=== PATIENT | male | born 1935 | race Caucasian/White ===

== ENCOUNTER → 2018-12-23 | Outpatient (CLI) | payer MEDICARE ==
--- NOTE | 2018-12-23 14:53 | 2DMMODE ---
[place] [address] 2 D/M-MODE ECHOCARDIOGRAM Name: EDILMA,EDJUDAH Room: [facility]#: [id number] Admission: 12/23/18 Attend Phys: Tomas Mcdaniels, Discharge: Date of : 39 Date of Service: 12/23/18 1452 Report #: [id number] THIS REPORT FOR: //name// APPROVED REPORT Study performed: 12/23/2018 13:59:36 EXAM: Comprehensive 2D, Doppler, and color-flow Echocardiogram Patient Location: Out-Patient BSA: 2.01 HR: 86 bpm BP: 140/90 mmHg Other Information Study Quality: Good Indications Murmur 2D Dimensions IVSd: 10.40 (7-11mm) LVOT Diam: 20.67 (18-24mm) LVDd: 45.18 mm PWd: 9.76 (7-11mm) Ascending Ao: 33.55 (22-36mm) LVDs: 26.82 (25-40mm) Aortic Root: 29.51 mm Volumes Left Atrial Volume (Systole) LA ESV Index: 20.50 mL/m2 Aortic Valve AoV Peak Roddy.: 3.01 m/s AO Peak Gr.: 36.16 mmHg LVOT Max P.29 mmHg AO Mean Gr.: 20.70 mmHg LVOT Mean P.29 mmHg LVOT Max V: 1.25 m/s AO V2 VTI: 62.95 cm LVOT Mean V: 0.84 m/s DIONTE (VTI): 1.52 cm2 LVOT V1 VTI: 28.47 cm Mitral Valve E/A Ratio: 0.60 MV Decel. Time: 269.35 ms MV E Max Roddy.: 0.81 m/s MV PHT: 78.11 ms MVA (PHT): 2.82 cm2 [place] [address] 2 D/M-MODE ECHOCARDIOGRAM Name: EDILMA,EDJUDAH Room: [facility]#: [id number] Admission: 12/23/18 Attend Phys: Tomas Mcdaniels, Discharge: Date of : 39 Date of Service: 12/23/18 1452 Report #: [id number] TDI E/Lateral E': 8.10 E/Medial E': 13.50 Medial E' Roddy.: 0.06 m/s Lateral E' Roddy.: 0.10 m/s Pulmonary Valve PV Peak Roddy.: 1.27 m/s PV Peak Gr.: 6.49 mmHg Tricuspid Valve RAP Estimate: 5.00 mmHg TR Peak Gr.: 17.37 mmHg RVSP: 22.37 mmHg PA Pressure: 22.37 mmHg Left Ventricle The left ventricle is normal size. There is normal LV segmental wall motion. There is normal left ventricular wall thickness. Left ventricular systolic function is normal. The left ventricular ejection fraction is within the normal range. LVEF is 60-65%. Grade I - abnormal relaxation pattern. Right Ventricle The right ventricle is normal size. The right ventricular systolic function is normal. Atria The left atrium size is normal. The right atrium size is normal. Aortic Valve Aortic valve is moderately calcified. No aortic regurgitation is present. Moderate aortic stenosis. Mitral Valve Moderate mitral annular calcification. Mild mitral regurgitation. No evidence of mitral valve stenosis. Tricuspid Valve The tricuspid valve is normal in structure. Mild tricuspid regurgitation. estimated pa pressure 25 mm hg Pulmonic Valve The pulmonary valve is normal in structure. Mild pulmonic regurgitation[place] [address] 2 D/M-MODE ECHOCARDIOGRAM Name: KEVIN FRANCE Room: [facility] Gordon#: [id number] Admission: 12/23/18 Attend Phys: Tomas Mcdaniels, Discharge: Date of : 39 Date of Service: 12/23/18 1452 Report #: [id number] The aortic root is normal in size. IVC is normal in size and collapses >50% with inspiration. Pericardium There is no pericardial effusion. <Conclusion> LVEF is 60-65%. Moderate aortic stenosis. Mild mitral regurgitation. <ELECTRONICALLY SIGNED> By: Donnell Magallon MD, FACC 12/23/181451 51 51 Donnell Magallon MD, FAC /INF
== END ==
LOC: M.CRD 13:56
DX: I08.8 Other rheumatic multiple valve diseases (principal)

== ENCOUNTER 2020-05-31 15:03 | Emergency (ER) | payer MEDICARE ==
[~2020-05-31] VITALS: Ht 172.7 cm; Wt 83.5 kg
[2020-05-31] MEDS ORDERED: LATANOPROST 0.2.5 ML OPHTHALMIC (15:11)
[2020-05-31 15:33] LABS: ABSOLUTE BASOPHILS 0.1 thou/uL (0.0-0.2); ABSOLUTE EOSINOPHILS 0.3 thou/uL (0.0-0.7); ABSOLUTE MONOCYTES 0.6 thou/uL (0.0-1.2); ABSOLUTE NEUTROPHILS 5.6 thou/uL (1.6-8.1); BASOPHILS 0.9 %; EOSINOPHILS 3.6 %; HEMOGLOBIN 14.2 gm/dL (14.0-18.0); LYMPHOCYTES 13.4 %; MCH 33.4 pg (26.0-34.0); MCHC 34.6 g/dL (28.0-37.0); MCV 96.6 fL (80.0-100.0); MONOCYTES 7.5 %; MPV 8.5 fl. (7.2-11.1); NUCLEATED RBCS 0 /100WBC; PLATELET COUNT* 185 thou/uL (150-400); POLYS 74.6 %; RBC 4.25 mil/uL (4.50-6.00); RDW-CV 12.9 % (10.5-14.5); WBC 7.5 thou/uL (4.0-11.0)
[2020-05-31 15:42] LABS: CALCIUM 8.6 mg/dL (8.5-10.1); CREATININE 1.2 mg/dL (0.6-1.3)
[2020-05-31 15:45] LABS: APTT 21.5 Seconds (25.0-31.3); PROTIME 10.3 Seconds (9.20-11.50)
--- NOTE | 2020-05-31 15:45 | EKG ---
[place] [address] ELECTROCARDIOGRAM REPORT Name: EDILMA,KEVIN Shanna Room: [facility]#: [id number] Admission: 05/31/20 Attend Phys: Discharge: Date of : 39 Date of Service: 05/31/20 1508 Report #: [id number] THIS REPORT FOR: //name// [facility] ED Test Date: 2020-05-31 Test Time: 15:08:39 Pat Name: KEVIN FRANCE Department: Room: Gender: Senior Financial: [facility] : 1935 Requested By: Jules Johnson Order Number: [id number] MD: Nathan Jung Measurements Intervals [place] Rate: 99 P: [place]: QRS: -20 QRSD: 115 T: 59 QT: 369 QTc: 474 Interpretive Statements Atrial fibrillation Ventricular premature complex Baseline wander in lead(s) II,III,aVF No previous ECG available for comparison Electronically Signed On 05-31-2020 15:44:55 CDT by Nathan Jung [email or web address] <ELECTRONICALLY SIGNED> By: Nathan Jung MD, [facility] 05/31/20 1544 1508 1508 Nathan Jung MD, [facility] /EPI
[2020-05-31 15:46] LABS: ALBUMIN 3.2 g/dL (3.4-5.0); TOTAL BILIRUBIN 0.6 mg/dL (<0.1-1.0); TOTAL PROTEIN 7.1 g/dL (6.4-8.2)
[2020-05-31 16:14] VITALS: BP 148/94
== END 2020-05-31 16:15 | disposition home or self-care (01) ==
LOC: M.ERS 15:03
PROVIDERS: Family Medicine
DX: S01.112A Laceration without foreign body of left eyelid and periocular area, initial encounter (principal); R55 Syncope and collapse; W18.39XA Other fall on same level, initial encounter; Y93.89 Activity, other specified; Y92.89 Other specified places as the place of occurrence of the external cause; Y99.8 Other external cause status

== ENCOUNTER 2020-06-05 22:59 | Inpatient (IN) | payer MEDICARE ==
[~2020-06-05] VITALS: Ht 172.7 cm; Wt 86.2 kg
[~2020-06-05 22:59] MED LIST: LATANOPROST 0.2.5 ML OPHTHALMIC
[2020-06-05 23:16] VITALS: BP 119/85
[2020-06-05 23:41] LABS: ABSOLUTE BASOPHILS 0.1 thou/uL (0.0-0.2); ABSOLUTE EOSINOPHILS 0.1 thou/uL (0.0-0.7); ABSOLUTE LYMPHOCYTES 1.4 thou/uL (0.8-5.3); ABSOLUTE MONOCYTES 1.1 thou/uL (0.0-1.2); ABSOLUTE NEUTROPHILS 8.7 thou/uL (1.6-8.1); BASOPHILS 0.5 %; EOSINOPHILS 0.9 %; HEMATOCRIT 45.3 % (42.0-52.0); HEMOGLOBIN 15.2 gm/dL (14.0-18.0); LYMPHOCYTES 11.9 %; MCH 32.8 pg (26.0-34.0); MCHC 33.6 g/dL (28.0-37.0); MCV 97.6 fL (80.0-100.0); MPV 8.5 fl. (7.2-11.1); NUCLEATED RBCS 0 /100WBC; PLATELET COUNT* 237 thou/uL (150-400); POLYS 76.7 %; RBC 4.64 mil/uL (4.50-6.00); WBC 11.4 thou/uL (4.0-11.0)
[2020-06-05 23:48] LABS: CALCIUM 9.4 mg/dL (8.5-10.1); CREATININE 1.3 mg/dL (0.6-1.3); POTASSIUM 3.9 mmol/L (3.5-5.1)
[2020-06-05 23:57] LABS: ALBUMIN 3.1 g/dL (3.4-5.0); MAGNESIUM 2.1 mg/dL (1.8-2.4); TOTAL BILIRUBIN 0.8 mg/dL (<0.1-1.0); TOTAL PROTEIN 7.5 g/dL (6.4-8.2)
[2020-06-06 01:27] LABS: URINE BILIRUBIN NEGATIVE (Negative); URINE BLOOD NEGATIVE (Negative); URINE CLARITY CLEAR; URINE COLOR YELLOW; URINE GLUCOSE-RANDOM NEGATIVE (Negative); URINE KETONES NEGATIVE (Negative); URINE LEUKOCYTES-REFLEX NEGATIVE (Negative); URINE NITRITE-REFLEX NEGATIVE (Negative); URINE PROTEIN NEGATIVE (Negative); URINE SPECIFIC GRAVITY <= 1.005 (1.005-1.030)
[2020-06-06 05:34] LABS: HEMATOCRIT 44.2 % (42.0-52.0); HEMOGLOBIN 14.8 gm/dL (14.0-18.0); MCH 32.7 pg (26.0-34.0); MCHC 33.6 g/dL (28.0-37.0); MCV 97.3 fL (80.0-100.0); MPV 8.5 fl. (7.2-11.1); NUCLEATED RBCS 0 /100WBC; PLATELET COUNT* 229 thou/uL (150-400); RBC 4.54 mil/uL (4.50-6.00)
[2020-06-06 05:36] LABS: CALCIUM 8.6 mg/dL (8.5-10.1); CREATININE 1.2 mg/dL (0.6-1.3); TOTAL BILIRUBIN 1.6 mg/dL (<0.1-1.0); TOTAL PROTEIN 7.3 g/dL (6.4-8.2)
[2020-06-06 05:45] VITALS: BP 108/73
[2020-06-06 06:16] LABS: ABSOLUTE LYMPHOCYTES 0.9 thou/uL (0.8-5.3); ABSOLUTE MONOCYTES 0.7 thou/uL (0.0-1.2); ABSOLUTE NEUTROPHILS 15.5 thou/uL (1.6-8.1); PLATELET ESTIMATE ADEQUATE
[2020-06-06 08:00] VITALS: BP 121/55
[2020-06-06 10:45] VITALS: BP 126/69
--- NOTE | 2020-06-06 11:20 | EKG ---
[place] [address] ELECTROCARDIOGRAM REPORT Name: KEVIN FRANCE Room: [address] ADM IN [facility].#: [id number] Admission: 06/06/20 Attend Phys: Gabriel Dominguez, Discharge: Date of : 39 Date of Service: 06/06/20 0400 Report #: [id number] THIS REPORT FOR: //name// [facility] ED Test Date: 2020-06-06 Test Time: 04:00:52 Pat Name: KEVIN FRANCE Department: Room: [facility] Gender: M Band Presser: MILADYS : 1935 Requested By: Patricia Jung Order Number: [id number] MD: Donnell Magallon Measurements Intervals [place] Rate: 113 P: -84 PA: 168 QRS: -55 QRSD: 126 T: 58 QT: 404 QTc: 554 Interpretive Statements atrial flutter Nonspecific IVCD with LAD Artifact in lead(s) II,III,aVF Compared to ECG 06/05/2020 23:28:09 Atrial fibrillation no longer present ST (T wave) deviation still present Electronically Signed On 06-06-2020 11:20:33 CDT by Donnell Magallon [email or web address] <ELECTRONICALLY SIGNED> By: Donnell Magallon MD, [facility] 06/06/20 1120 9 9 Donnell Magallon MD, [facility] /EPI
--- NOTE | 2020-06-06 11:22 | EKG ---
[place] [address] ELECTROCARDIOGRAM REPORT Name: KEVIN FRANCE Room: [address] ADM IN .R.#: [id number] Admission: 06/06/20 Attend Phys: Gabriel Dominguez, Discharge: Date of : 39 Date of Service: 06/06/20 0402 Report #: [id number] THIS REPORT FOR: //name// [facility] ED Test Date: 2020-06-06 Test Time: 04:02:51 Pat Name: KEVIN FRANCE Department: Room: [address] Gender: M Box Truck Washer: MILADYS PERRYB: 1935 Requested By: Patricia Jung Order Number: [id number] Adelso MD: Donnell Magallon Measurements Intervals [place] Rate: 83 P: [place]: QRS: -64 QRSD: 111 T: 237 QT: 462 QTc: 543 Interpretive Statements Atrial flutter with varied AV block left axis Anterior ST elevation, probably due early repolarization Prolonged QT interval Compared to ECG 06/06/2020 04:00:52 Prolonged QT interval now present ST (T wave) deviation still present Electronically Signed On 06-06-2020 11:22:30 CDT by Donnell Magallon [email or web address] <ELECTRONICALLY SIGNED> By: Donnell Magallon MD, [facility] 06/06/20 112 1 1 Donnell Magallon MD, [facility] /EPI
[2020-06-06 12:00] VITALS: BP 122/63
[2020-06-06 14:07] VITALS: BP 121/55
--- NOTE | 2020-06-06 17:14 | EKG ---
[place] [address] ELECTROCARDIOGRAM REPORT Name: KEVIN FRANCE Room: [address] ADM IN ..#: [id number] Admission: 06/06/20 Attend Phys: Gabriel Dominguez, Discharge: Date of : 39 Date of Service: 06/05/20 2328 Report #: [id number] THIS REPORT FOR: //name// [facility] ED Test Date: 2020-06-05 Test Time: 23:28:09 Pat Name: KEVIN FRANCE Department: Room: [address] Gender: M Service Secretary: FARHANA : 1935 Requested By: Patricia Jung Order Number: [id number] Reading MD: Donnell Magallon Measurements Intervals [place] Rate: 95 P: [place]: QRS: -15 QRSD: 90 T: 49 QT: 359 QTc: 452 Interpretive Statements Atrial fibrillation Consider left ventricular hypertrophy ST elevation, consider early repolarization Baseline wander in lead(s) V1 Compared to ECG 05/31/2020 15:08:39 Ventricular premature complex(es) no longer present Electronically Signed On 06-06-2020 17:14:31 CDT by Donnell Magallon [email or web address] <ELECTRONICALLY SIGNED> By: Donnell Magallon MD, FACC 06/06/20 1714 2328 2328 Donnell Magallon MD, [facility] /EPI
[2020-06-07] VITALS: BP 134/67
[2020-06-07 04:56] VITALS: BP 124/71
[2020-06-07 05:21] LABS: ALBUMIN 2.6 g/dL (3.4-5.0); CALCIUM 8.3 mg/dL (8.5-10.1); CREATININE 1.6 mg/dL (0.6-1.3); MAGNESIUM 2.2 mg/dL (1.8-2.4); PHOSPHORUS* 2.8 mg/dL (2.5-4.9); POTASSIUM 4.7 mmol/L (3.5-5.1); TOTAL BILIRUBIN 1.7 mg/dL (<0.1-1.0); TOTAL PROTEIN 6.9 g/dL (6.4-8.2)
[2020-06-07 05:22] LABS: ABSOLUTE LYMPHOCYTES 0.5 thou/uL (0.8-5.3); ABSOLUTE MONOCYTES 0.6 thou/uL (0.0-1.2); ABSOLUTE NEUTROPHILS 12.9 thou/uL (1.6-8.1); BASOPHILS 0.1 %; HEMATOCRIT 39.5 % (42.0-52.0); LYMPHOCYTES 3.3 %; MCH 32.1 pg (26.0-34.0); MCV 97.4 fL (80.0-100.0); MONOCYTES 4.3 %; MPV 8.9 fl. (7.2-11.1); NUCLEATED RBCS 0 /100WBC; PLATELET COUNT* 207 thou/uL (150-400); POLYS 92.3 %; RBC 4.06 mil/uL (4.50-6.00); RDW-CV 12.9 % (10.5-14.5); WBC 13.9 thou/uL (4.0-11.0)
[2020-06-07 05:27] LABS: APTT 26.3 Seconds (25.0-31.3); INR 1.1; PROTIME 11.9 Seconds (9.20-11.50)
[2020-06-07 05:32] LABS: CALCIUM 8.5 mg/dL (8.5-10.1); CREATININE 1.6 mg/dL (0.6-1.3); POTASSIUM 4.7 mmol/L (3.5-5.1)
[2020-06-07 08:00] VITALS: BP 156/88
[2020-06-07 12:00] VITALS: BP 151/79
[2020-06-07 16:00] VITALS: BP 131/65
[2020-06-07 20:00] VITALS: BP 134/71
[2020-06-08] VITALS: BP 123/56
[2020-06-08 06:19] LABS: HEMATOCRIT 35.4 % (42.0-52.0); HEMOGLOBIN 11.9 gm/dL (14.0-18.0); MCH 32.9 pg (26.0-34.0); MCHC 33.6 g/dL (28.0-37.0); MCV 97.8 fL (80.0-100.0); MPV 9.2 fl. (7.2-11.1); RBC 3.62 mil/uL (4.50-6.00); RDW-CV 12.9 % (10.5-14.5); WBC 13.5 thou/uL (4.0-11.0)
[2020-06-08 06:23] LABS: CALCIUM 8.6 mg/dL (8.5-10.1); CREATININE 1.4 mg/dL (0.6-1.3); POTASSIUM 3.8 mmol/L (3.5-5.1)
[2020-06-08 08:00] VITALS: BP 157/81
--- NOTE | 2020-06-08 08:56 | EKG ---
[place] [address] ELECTROCARDIOGRAM REPORT Name: KEVIN FRANCE Room: [address] ADM IN .R.#: [id number] Admission: 06/06/20 Attend Phys: Gabriel Dominguez, Discharge: Date of : 39 Date of Service: 06/08/20 0559 Report #: [id number] THIS REPORT FOR: //name// [facility] Test Date: 2020-06-08 Test Time: 05:59:32 Pat Name: KEVIN FRANCE Department: Room: [address] Gender: M Material Attendant: LASHAE : 1935 Requested By: Giuliana Rapp Order Number: [id number] Reading MD: Donnell Magallon Measurements Intervals [place] Rate: 69 P: 39 [place]: 191 QRS: -23 QRSD: 106 T: 29 QT: 433 QTc: 464 Interpretive Statements Sinus rhythm Left atrial enlargement Borderline left axis deviation Borderline ST elevation, anterior leads Compared to ECG 06/06/2020 04:02:51 atrial flutter no longer seen ST (T wave) deviation still present Electronically Signed On 06-08-2020 8:56:17 CDT by Donnell Magallon [email or web address] <ELECTRONICALLY SIGNED> By: Donnell Magallon MD, FACC 06/08/20 0856 0559 0559 Donnell Magallon MD, [facility] /EPI
[2020-06-08] MEDS ORDERED: PACERONE 200 M200 M1 PO (10:18)
[2020-06-08] MEDS ORDERED: XARELTO20 MG PO (10:18)
[2020-06-08 12:01] VITALS: BP 105/58
[2020-06-08] MEDS ORDERED: FLOMAX0.4 MG PO (15:36)
[2020-06-08] MEDS ORDERED: AUGMENTIN 875-1 EACH PO (15:49)
[2020-06-08 15:57] VITALS: BP 105/58
--- NOTE | 2020-06-10 15:21 | OP ---
[address] [address] OPERATIVE REPORT Name: KEVIN FRANCE Room: [address] IN .R.#: [id number] Admission: 06/06/20 Attend Phys: Gabriel Dominguez MD Discharge: 06/08/20 Date of : 39 Report #: [id number] THIS REPORT FOR: cc: Tomas Mcdaniels John E. DO Kramer, Adam P. DO ~ DICTATED BY: Margie Robles DO DATE OF SERVICE: 06/06/2020 PREOPERATIVE DIAGNOSIS: Acute appendicitis. POSTOPERATIVE DIAGNOSIS: Acute perforated appendicitis. PRIMARY SURGEON: Ludwig Alaniz DO RETURNED TELEPHONE EQUIPMENT APPRAISER: Margie Robles DO, PGY3. SECOND BEVEL MILL OPERATOR: Abel Pereyra MS3. PROCEDURE PERFORMED: Laparoscopic appendectomy. ANESTHESIA: General and local. ESTIMATED BLOOD LOSS: 20 mL. SPECIMEN: Appendix. INDICATIONS FOR PROCEDURE: The patient is an 84-year-old gentleman who presented to the Emergency Department with complaint of abdominal pain that had localized to the right lower quadrant. He had some loose stools accompanied with the pain. Of note, he is also under the care of Dr. Jung, his door tender, and had been wearing a cardiac rehabilitation program director after a syncopal episode on 05/31. He was found to have severe aortic stenosis and is under consideration for a TAVR. He was admitted to the hospital with plans for cardiac clearance and then plans for laparoscopic appendectomy. The procedure, risks, benefits, possible complications to include bleeding, infection, injury to surrounding structures, need for additional surgery, risk of anesthesia, and other risks of surgery were all discussed with the patient in great detail. He voiced complete understanding and wished to proceed with surgery. DESCRIPTION OF PROCEDURE: Informed consent was obtained. The patient was taken to the operating room and placed supine on the operating room table. General endotracheal anesthesia was induced without difficulty. SCDs were placed on bilateral lower extremities. [place] [address] OPERATIVE REPORT Name: EDILMAKEVIN Room: [address] IN [facility].#: [id number] Admission: 06/06/20 Attend Phys: Gabriel Dominguez MD Discharge: 06/08/20 Date of : 39 Report #: [id number] catheter was placed. The left arm was tucked at his side with all pressure points padded. The abdomen was prepped and draped in a standard sterile fashion. A timeout was performed to ensure correct patient and procedure. A vertical supraumbilical incision was made using a #11 blade scalpel. The incision was carried down through subcutaneous tissue using electrocautery. Army-Navys were used to help dissect further down to the level of the fascia. Fascia was scored with electrocautery and grasped between 2 Kochers. Fascia was elevated. Peritoneum was entered bluntly using hemostat. The 0 Vicryl stay sutures were placed on either side of the fascial opening in a [id number] fashion. A 5-mm Ynes trocar was inserted through the fascial opening. Abdomen was insufflated, laparoscopic camera was inserted and a sweep of the anterior abdominal contents was performed. There appeared to be quite a bit of inflammation in the right lower quadrant as well as some purulent fluid. The patient was placed in the Trendelenburg position. A suprapubic 5-mm trocar was inserted under direct visualization. The right lower quadrant was explored. The appendix was seen coursing into the pelvis. A 12-mm left lower quadrant trocar was inserted under direct visualization. The mesoappendix was grasped and the appendix was bluntly dissected away from the lateral abdominal wall and elevated. The mesoappendix was taken down using the Harmonic scalpel until we reached the base of the appendix. The base of the appendix did appear to be healthy. There was an obvious perforation along the mid portion of the appendix with purulent discharge. A 45-mm purple load on the Endo-MICHELLE stapler was used to come across the base of the appendix. The appendix was placed within an EndoCatch bag. The suction bait painter was used to irrigate the right lower quadrant and the pelvis. A 15-Portuguese SHAHID drain was placed through the suprapubic trocar into the right lower quadrant and pelvis. The 5-mm trocar was removed. The abdomen was reinspected, everything appeared to be hemostatic. Our staple line was reinspected, it appeared to be hemostatic. The left lower quadrant 12-mm trocar was removed under direct visualization and the abdomen was desufflated without difficulty. The appendix within the EndoCatch bag was removed. We did have to remove our superior stay suture and open up the fascia using heavy curved Ascencio scissors. The fascia was then grasped between 2 Kochers and elevated. Fascia was closed using a 0 Vicryl suture in a [id number]-gbkxc fashion. The drain was sutured in place using a 2-0 nylon suture. The skin at the supraumbilical incision was closed using 4-0 Monocryl suture in a running subcuticular fashion. The skin at the left lower quadrant trocar site was closed using 4-0 Monocryl suture in a simple interrupted and inverted fashion. Skin was cleansed and dried. Approximately 30 mL of 0.5% Marcaine were used for local anesthesia. Dermabond was applied to each incision. The patient tolerated the procedure very well. He was allowed to awaken in the operating [facility] [address] [place] [address] OPERATIVE REPORT Name: KEVIN FRANCE Room: [address] IN [facility].#: [id number] Admission: 06/06/20 Attend Phys: Gabriel Dominguez MD Discharge: 06/08/20 Date of : 39 Report #: [id number] room, was transferred to the PACU in stable condition with plans to return to the floor for ongoing care and continued antibiotics. <ELECTRONICALLY SIGNED> By: Ludwig Alaniz DO 06/10/20 1521 13 2059Anahum Alaniz DO /nt
== END 2020-06-08 17:30 | disposition home or self-care (01) | DRG 853 ==
LOC: M.ERS 22:59 → M.2W 06-06 05:31 → M.TBA-ER 06-06 05:31 → M.2W 06-06 05:45
PROVIDERS: Emergency Medicine; Internal Medicine; Surgery; ADMIT Internal Medicine; ATTEND Internal Medicine
PROC: 0DTJ4ZZ Resection of Appendix, Percutaneous Endoscopic Approach (ICD-10-PCS; principal; 2020-06-06)
DX: A41.9 Sepsis, unspecified organism (principal); K35.32 Acute appendicitis with perforation, localized peritonitis, and gangrene, without abscess; I48.92 Unspecified atrial flutter; N17.9 Acute kidney failure, unspecified; I35.0 Nonrheumatic aortic (valve) stenosis; Z20.822 Contact with and (suspected) exposure to COVID-19

== ENCOUNTER 2020-06-10 11:14 | Inpatient (IN) | payer MEDICARE ==
[~2020-06-10] VITALS: Ht 172.7 cm; Wt 83.5 kg
[~2020-06-10 11:14] MED LIST changes: +AUGMENTIN 875-1 EACH PO; +FLOMAX0.4 MG PO; +PACERONE 200 M200 M1 PO; +XARELTO20 MG PO
[2020-06-10 12:13] VITALS: BP 115/81
[2020-06-10 13:30] LABS: ABSOLUTE BASOPHILS 0.1 thou/uL (0.0-0.2); ABSOLUTE EOSINOPHILS 0.2 thou/uL (0.0-0.7); ABSOLUTE LYMPHOCYTES 0.8 thou/uL (0.8-5.3); ABSOLUTE MONOCYTES 1.1 thou/uL (0.0-1.2); BASOPHILS 0.9 %; EOSINOPHILS 2.3 %; HEMATOCRIT 39.3 % (42.0-52.0); HEMOGLOBIN 13.3 gm/dL (14.0-18.0); LYMPHOCYTES 8.3 %; MCH 33.3 pg (26.0-34.0); MONOCYTES 12.1 %; MPV 8.2 fl. (7.2-11.1); NUCLEATED RBCS 0 /100WBC; PLATELET COUNT* 255 thou/uL (150-400); POLYS 76.4 %; WBC 9.2 thou/uL (4.0-11.0)
[2020-06-10 13:53] LABS: CALCIUM 8.4 mg/dL (8.5-10.1); CREATININE 1.1 mg/dL (0.6-1.3)
[2020-06-10 14:02] LABS: ALBUMIN 2.4 g/dL (3.4-5.0); TOTAL BILIRUBIN 0.8 mg/dL (<0.1-1.0); TOTAL PROTEIN 6.7 g/dL (6.4-8.2)
[2020-06-10 18:03] VITALS: BP 111/65
[2020-06-10 23:04] VITALS: BP 120/66
[2020-06-11 00:38] VITALS: BP 156/76
[2020-06-11 04:35] LABS: HEMOGLOBIN 13.6 gm/dL (14.0-18.0); MCH 32.9 pg (26.0-34.0); MCHC 33.9 g/dL (28.0-37.0); MCV 97.1 fL (80.0-100.0); MPV 8.2 fl. (7.2-11.1); RBC 4.12 mil/uL (4.50-6.00); RDW-CV 12.7 % (10.5-14.5); WBC 12.2 thou/uL (4.0-11.0)
[2020-06-11 04:44] VITALS: BP 132/61
[2020-06-11 04:55] LABS: ALBUMIN 2.4 g/dL (3.4-5.0); CALCIUM 8.2 mg/dL (8.5-10.1); CREATININE 1.2 mg/dL (0.6-1.3); MAGNESIUM 2.2 mg/dL (1.8-2.4); POTASSIUM 4.1 mmol/L (3.5-5.1); TOTAL BILIRUBIN 0.8 mg/dL (<0.1-1.0); TOTAL PROTEIN 6.8 g/dL (6.4-8.2)
[2020-06-11 08:00] VITALS: BP 158/82
[2020-06-11 16:40] VITALS: BP 127/72
[2020-06-11 22:00] VITALS: BP 137/71
[2020-06-12 08:00] VITALS: BP 155/79
[2020-06-12 09:20] LABS: CALCIUM 7.9 mg/dL (8.5-10.1); CREATININE 1.2 mg/dL (0.6-1.3); MAGNESIUM 2.3 mg/dL (1.8-2.4); POTASSIUM 3.8 mmol/L (3.5-5.1)
[2020-06-12 09:21] LABS: HEMATOCRIT 35.2 % (42.0-52.0); MCH 32.7 pg (26.0-34.0); MCHC 33.1 g/dL (28.0-37.0); MCV 98.8 fL (80.0-100.0); MPV 8.7 fl. (7.2-11.1); RBC 3.56 mil/uL (4.50-6.00); RDW-CV 12.7 % (10.5-14.5); WBC 9.2 thou/uL (4.0-11.0)
[2020-06-12 10:44] LABS: HEMOGLOBIN 11.6 gm/dL (14.0-18.0)
[2020-06-12 15:29] VITALS: BP 128/77
[2020-06-13 00:42] VITALS: BP 140/69
[2020-06-13 04:59] LABS: CALCIUM 8.4 mg/dL (8.5-10.1); CREATININE 1.2 mg/dL (0.6-1.3); MAGNESIUM 2.3 mg/dL (1.8-2.4); POTASSIUM 3.7 mmol/L (3.5-5.1)
[2020-06-13 06:16] VITALS: BP 153/69
[2020-06-13 09:00] VITALS: BP 164/80
[2020-06-13 16:38] VITALS: BP 145/68
[2020-06-13 20:10] VITALS: BP 143/70
[2020-06-14] MEDS ORDERED: LACTOBACILLUS1 EACH PO (09:17)
[2020-06-14] MEDS ORDERED: CEPHALEXIN500 MG PO (09:17)
[2020-06-14 09:33] VITALS: BP 143/70
[2020-06-14 09:41] VITALS: BP 143/70
== END 2020-06-14 14:00 | disposition home or self-care (01) | DRG 299 ==
LOC: M.ERS 11:14 → M.ORTHSURG 14:37 → M.TBA-ER 14:37 → M.ORTHSURG 18:05
PROVIDERS: Internal Medicine; Physician Assistant; ADMIT Internal Medicine; ATTEND Internal Medicine
DX: I82.611 Acute embolism and thrombosis of superficial veins of right upper extremity (principal); E43 Unspecified severe protein-calorie malnutrition; L03.113 Cellulitis of right upper limb; I80.8 Phlebitis and thrombophlebitis of other sites; I35.1 Nonrheumatic aortic (valve) insufficiency; I48.91 Unspecified atrial fibrillation; D72.829 Elevated white blood cell count, unspecified; Z20.822 Contact with and (suspected) exposure to COVID-19; Z90.49 Acquired absence of other specified parts of digestive tract; Z79.01 Long term (current) use of anticoagulants; Z79.899 Other long term (current) drug therapy; Z68.28 Body mass index [BMI] 28.0-28.9, adult

== ENCOUNTER → 2020-07-05 | Outpatient (CLI) | payer MEDICARE ==
[~2020-07-05] VITALS: Ht 180.3 cm; Wt 81.6 kg
[~2020-07-05] MED LIST changes: +ALLEGRA ALLERG180 MG PO; +AMIODARONE HCL400 MG PO; +CEPHALEXIN500 MG PO; +LACTOBACILLUS1 EACH PO
[2020-07-05 09:36] VITALS: BP 152/88
[2020-07-05 09:44] LABS: ABSOLUTE BASOPHILS 0.1 thou/uL (0.0-0.2); ABSOLUTE EOSINOPHILS 0.2 thou/uL (0.0-0.7); ABSOLUTE MONOCYTES 0.7 thou/uL (0.0-1.2); ABSOLUTE NEUTROPHILS 4.6 thou/uL (1.6-8.1); EOSINOPHILS 3.1 %; HEMATOCRIT 41.5 % (42.0-52.0); HEMOGLOBIN 14.2 gm/dL (14.0-18.0); LYMPHOCYTES 15.8 %; MCH 33.5 pg (26.0-34.0); MCHC 34.2 g/dL (28.0-37.0); MCV 97.9 fL (80.0-100.0); MONOCYTES 10.3 %; MPV 8.5 fl. (7.2-11.1); NUCLEATED RBCS 0 /100WBC; PLATELET COUNT* 175 thou/uL (150-400); POLYS 69.8 %; RBC 4.24 mil/uL (4.50-6.00); WBC 6.6 thou/uL (4.0-11.0)
[2020-07-05 09:53] LABS: ANION GAP 11 mmol/L (7-16); BUN 22 mg/dL (7-18); CALCIUM 8.8 mg/dL (8.5-10.1); CHLORIDE 105 mmol/L (98-107); CO2 26 mmol/L (21-32); CREATININE 1.3 mg/dL (0.6-1.3); GLUCOSE 98 mg/dL (70-99); POTASSIUM 3.8 mmol/L (3.5-5.1); SODIUM 142 mmol/L (136-145)
[2020-07-05 09:56] LABS: APTT 23.4 Seconds (25.0-31.3); PROTIME 9.8 Seconds (9.20-11.50)
[2020-07-05 09:58] LABS: ALBUMIN 3.5 g/dL (3.4-5.0); ALKALINE PHOSPHATASE 122 U/L (46-116); CHOLESTEROL 191 mg/dL (<200); HDL CHOLESTEROL 68 mg/dL (>40); LDL CHOLESTEROL 109 mg/dL (<100); SGOT 32 U/L (15-37); SGPT 25 U/L (30-65); TC:HDL 2.8 Ratio (Not establshd); TOTAL BILIRUBIN 0.9 mg/dL (<0.1-1.0); TOTAL PROTEIN 7.8 g/dL (6.4-8.2); TRIGLYCERIDE 73 mg/dL (<150); VLDL 15 mg/dL (<40)
[2020-07-05 10:03] LABS: SERUM ASSESSMENT Clear
[2020-07-05 12:16] VITALS: BP 166/75
[2020-07-05 12:32] VITALS: BP 139/81
[2020-07-05 12:47] VITALS: BP 130/78
--- NOTE | 2020-07-05 12:57 | EKG ---
[place] [address] ELECTROCARDIOGRAM REPORT Name: EDILMAKEVIN Shanna Room: [facility]#: [id number] Admission: 07/05/20 Attend Phys: Nathan Jung, Discharge: Date of : 39 Date of Service: 07/05/20 0949 Report #: [id number] THIS REPORT FOR: //name// [facility] Test Date: 2020-07-05 Test Time: 09:49:35 Pat Name: KEVIN FRANCE Department: Room: Gender: Auto Hiker: : 1935 Requested By: Nathan Jung Order Number: [id number] Reading MD: Tomas Segura Measurements Intervals [place] Rate: 68 P: 58 [place]: 191 QRS: -40 QRSD: 109 T: 64 QT: 428 QTc: 456 Interpretive Statements Sinus rhythm Probable left atrial enlargement Left axis deviation Minimal ST depression, lateral leads Borderline ST elevation, anterior leads Compared to ECG 06/08/2020 05:59:32 No significant changes Electronically Signed On 07-05-2020 12:56:56 CDT by Tomas Segura [email or web address] <ELECTRONICALLY SIGNED> By: Tomas Segura MD, [facility] 07/05/20 1256 0949 0949 Tomas Segura MD, [facility] /EPI
[2020-07-05 13:05] VITALS: BP 124/60
[2020-07-05 13:20] VITALS: BP 118/70
--- NOTE | 2020-07-05 14:03 | CARD ---
[address] [address] CARDIAC CATH REPORT Name: KEVIN FRANCE Room: [facility]#: [id number] Admission: 07/05/20 Attend Phys: Nathan Jung MD Discharge: Date of : 39 Report #: [id number] THIS REPORT FOR: cc: Tomas Mcdaniels John E. DO Liston, Michael J. MD [facility] ~ APPROVED REPORT Study performed: 07/05/2020 10:58:50 Patient Details Patient Status: Out-Patient Room #: The patient is a 84 year-old male Event Personnel Nathan Jung Cook Dinner, Roxanne Felipe RN RN, Ludwig Sims RTR Scrub, Alysia Alaniz RTR Monitor Procedures Performed Art Access - R radial artery Coronary Angiography Only Hemostasis with Hemoband Admission/Lab Medications/Medications given during procedure Fentanyl IV 25 mcg, Midazolam (Versed) IV 1 mg, Lidocaine Subcut 8 ml, Nitroglycerin IA 200 mcg, Verapamil IA 2.5 mg, Hydralazine (Apresoline) IV 10 mg, Oxygen Nasal cannula 2 l per min, 0.9% Sodium Chloride IV 75 ml per hr Procedure Narrative The patient was brought electively to the Cardiac Catheterization Laboratory and was prepped and draped in a sterile manner. The right wrist was infiltrated with 2% Lidocaine subcutaneous anesthesia. IV conscious sedation was used throughout procedure with appropriate monitoring and was performed in the presence of a registered nurse who was an independent trained observer other than the physician performing the procedure. A Slender Glidesheath sheath was inserted into the right radial artery. Coronary angiography was performed using coronary diagnostic catheters. The right coronary system was accessed and visualized with a Diagnostic 6 Fr TIG catheter. The left coronary system was accessed and visualized with a Diagnostic 6 Fr TIG catheter. Closure device was deployed with a Fr Vasc-Band Reg 24cm. The patient tolerated the procedure well and there were no complications associated with the procedure. [place] [address] CARDIAC CATH REPORT Name: KEVIN FRANCE Room: [facility]#: [id number] Admission: 07/05/20 Attend Phys: Nathan Jung MD Discharge: Date of : 39 Report #: [id number] Intraoperative Conscious Sedation Sedation start time: 1132 Case end Time: 1149 Fentanyl 25 mcg Versed 1 mg Fluoro Time: 7.9 minutes Dose: DAP 80104 cGycm2 927 mGy Contrast Type and Amount: Visipaque 90 ml Coronary Angiography The patient's coronary anatomy is left dominant. Diagnostic Cath Left Main The left main coronary artery is normal uppercase into a left anterior descending and circumflex coronary 3. LAD The left anterior descending coronary artery has a 60% tubular narrowing proximally. The mid and distal vessel are free of significant disease. Diagonal 1 A moderate-sized branch first diagonal branch is free of significant disease. Circumflex The circumflex coronary artery has mild 10% plaquing in its midportion. OM1 A first obtuse marginal branch has a 50% ostial narrowing. The remainder the vessel is normal. L PDA A left PDA is normal. L JOSEPH The left posterior lateral LV branch is normal. Right Coronary A small nondominant right coronary artery is free of significant disease. Left Ventriculography Left Ventriculography was not performed. Conclusion 1. Moderate nonocclusive coronary artery disease as outlined above. 2. History of severe aortic stenosis. Recommendations 1. Continue medical management [place] [address] CARDIAC CATH REPORT Name: KEVIN FRANCE Room: [facility]#: [id number] Admission: 07/05/20 Attend Phys: Nathan Jung MD Discharge: Date of : 39 Report #: [id number] modification. 2. Referral for transcutaneous aortic valve replacement. <ELECTRONICALLY SIGNED> By: Nathan Jung MD, [facility] 07/05/20 1403 02 1403Micanjum Jung MD, FACC /INF
== END | disposition home or self-care (01) ==
LOC: M.CL 08:33
PROVIDERS: ATTEND Internal Medicine Cardiovascular Disease
DX: I25.10 Atherosclerotic heart disease of native coronary artery without angina pectoris (principal); R06.02 Shortness of breath; I48.91 Unspecified atrial fibrillation; Z98.890 Other specified postprocedural states; Z79.899 Other long term (current) drug therapy; Z79.01 Long term (current) use of anticoagulants; Z90.49 Acquired absence of other specified parts of digestive tract

== ENCOUNTER → 2020-11-23 | Outpatient (CLI) | payer MEDICARE | LOC: M.MRI 11:19 | PROVIDERS: ATTEND Nurse Practitioner Family | DX: S32.018A Other fracture of first lumbar vertebra, initial encounter for closed fracture (principal); S22.088A Other fracture of T11-T12 vertebra, initial encounter for closed fracture; X58.XXXA Exposure to other specified factors, initial encounter; Y93.89 Activity, other specified; Y92.89 Other specified places as the place of occurrence of the external cause; Y99.8 Other external cause status ==

== ENCOUNTER → 2020-12-02 | Outpatient (CLI) | payer MEDICARE | LOC: M.INT 13:59 | PROVIDERS: ATTEND Nurse Practitioner Family | DX: M54.9 Dorsalgia, unspecified (principal); S22.080A Wedge compression fracture of T11-T12 vertebra, initial encounter for closed fracture; S32.010A Wedge compression fracture of first lumbar vertebra, initial encounter for closed fracture; Z98.890 Other specified postprocedural states; Z79.899 Other long term (current) drug therapy; X58.XXXA Exposure to other specified factors, initial encounter; Y93.89 Activity, other specified; Y92.89 Other specified places as the place of occurrence of the external cause; Y99.8 Other external cause status ==

== ENCOUNTER → 2020-12-09 | Outpatient (CLI) | payer MEDICARE ==
[~2020-12-09] VITALS: Ht 177.8 cm; Wt 78.9 kg
[2020-12-09 10:46] LABS: HEMATOCRIT 35.8 % (42.0-52.0); HEMOGLOBIN 12.3 gm/dL (14.0-18.0); MCH 32.4 pg (26.0-34.0); MCHC 34.3 g/dL (28.0-37.0); MCV 94.4 fL (80.0-100.0); MPV 8.3 fl. (7.2-11.1); RBC 3.79 mil/uL (4.50-6.00); RDW-CV 13.2 % (10.5-14.5); WBC 6.7 thou/uL (4.0-11.0)
[2020-12-09 10:49] VITALS: BP 132/67
[2020-12-09 10:58] LABS: APTT 24.2 Seconds (25.0-31.3); PROTIME 10.8 Seconds (9.20-11.50)
[2020-12-09 12:20] VITALS: BP 122/52
[2020-12-09 12:43] VITALS: BP 120/51
[2020-12-09 13:15] VITALS: BP 111/50
[2020-12-09 13:45] VITALS: BP 120/53
== END | disposition home or self-care (01) ==
LOC: M.CL 05:59
PROVIDERS: Radiology Diagnostic Radiology; ATTEND Radiology Diagnostic Radiology
DX: M80.08XA Age-related osteoporosis with current pathological fracture, vertebra(e), initial encounter for fracture (principal); M54.9 Dorsalgia, unspecified; E78.00 Pure hypercholesterolemia, unspecified; Z98.890 Other specified postprocedural states; Z79.899 Other long term (current) drug therapy; Z95.0 Presence of cardiac pacemaker

== ENCOUNTER 2021-03-15 11:52 | Emergency (ER) | payer MEDICARE ==
[~2021-03-15] VITALS: Ht 177.8 cm; Wt 77.1 kg
[2021-03-15 12:03] VITALS: BP 137/70
== END 2021-03-15 12:57 | disposition home or self-care (01) ==
LOC: M.ERS 11:52
DX: S51.811A Laceration without foreign body of right forearm, initial encounter (principal); Z79.899 Other long term (current) drug therapy; W19.XXXA Unspecified fall, initial encounter; Y93.89 Activity, other specified; Y92.89 Other specified places as the place of occurrence of the external cause; Y99.8 Other external cause status

== ENCOUNTER 2021-04-19 09:53 | Emergency (ER) | payer MEDICARE ==
[~2021-04-19] VITALS: Ht 177.8 cm; Wt 78.9 kg
[2021-04-19] MEDS ORDERED: HYDROCODON-ACE1 EAC7 PO (15:51)
[2021-04-19] MEDS ORDERED: CEPHALEXIN500 MG PO (15:56)
[2021-04-19 16:07] VITALS: BP 123/54
== END 2021-04-19 16:08 | disposition home or self-care (01) ==
LOC: M.ERS 09:53
DX: S70.12XA Contusion of left thigh, initial encounter (principal); I48.91 Unspecified atrial fibrillation; Z95.0 Presence of cardiac pacemaker; Z79.899 Other long term (current) drug therapy; Z79.2 Long term (current) use of antibiotics; W10.8XXA Fall (on) (from) other stairs and steps, initial encounter; Y93.89 Activity, other specified; Y92.89 Other specified places as the place of occurrence of the external cause; Y99.8 Other external cause status